=== PATIENT | female | born 1975 | race Caucasian/White ===

== ENCOUNTER 2016-09-19 17:44 | Emergency (ER) | payer OTHER ==
--- NOTE | ~2016-09-19 | CR63 ---
[facility]. [facility] A Service of [facility] RADIOLOGY TEXT RESULTS PATIENT: CHELSEA EASLEY LOCATION: SED : 77 UNIT #: [id number] AGE: [address]: GRACE GILLILAND SEX: F ORDER DR: [id number] [place] [id number] MR#: [id number] Acc #: [id number] NAME: CHELSEA EASLEY. : 1975 SEX: F STUDY DATE/TIME: 09/19/2016 18:12 UNIT: SED ROOM: STUDY DESCRIPTION: CR Chest 2 View Attending Physician: Grace Gilliland Aprn Ordering Physician: Grace Gilliland Aprn Primary Care Physician: No Primary Care Physician MEDICAL IMAGING REPORT This report is preliminary unless electronic signature is present. EXAM Two-view chest INDICATION Shortness of air. Nonproductive cough for the past 2 days. PROCEDURE Frontal and lateral views of the chest. COMPARISON 05/22/2014 FINDINGS Heart size within normal limits. Lungs clear. No pleural fluid. No pneumothorax. IMPRESSION No active process. Dictated by... Ray Peterson M.D. THIS IS AN ELECTRONICALLY VERIFIED REPORT Ray Peterson M.D. at 09/23/2016 7:05 AM AMY/papito TD: 09/20/2016 08:07 JOB #: [id number] MEDICAL IMAGING REPORT Page 1 of 1
[~2016-09-19 17:44] MED LIST: ALBUTEROL17 GM; ALBUTEROL17 GM INH; ALLEVE; AUGMENTIN PO; BACTRIM DS TABL1 TA1 PO; BENZONATATE PO; HYDROCODON-ACE1 EACH PO; LEVAQUIN750 M1 PO; LISINOPRIL PO; MUCINEX1200 MG/BO; NO MEDICATIONS; OCUFLOX10 ML OD; PREDNISONE PO; ROBITUSSIN A-C S5 ML PO; SYMBICORT INH; VICODIN PO; VOLTAREN75 MG PO; ZITHROMAX PO; ZYRTEC
[2016-09-19 18:14] LABS: BASOPHIL# 0.2 X10e3 (0-0.3); BASOPHIL% 1.4 % (0-2.5); EOSINOPHIL% 8.2 % (0.0-7.0); HEMATOCRIT 40.6 % (35.0-45.0); HEMOGLOBIN 13.5 gm/dL (12.0-16.0); LYMPHOCYTE# 3.1 X10e3 (1.0-3.5); LYMPHOCYTE% 25.5 % (17.0-45.0); MEAN CORPUSCULAR HEMOGLOBIN 29.2 PG (28-34); MEAN CORPUSCULAR HGB CONC 33.2 g/dL (30-36); MEAN PLATELET VOLUME 7.4 FL (6.5-11.5); MONOCYTE# 0.7 X10e3 (0-1.0); MONOCYTE% 5.9 % (3.0-12.0); NEUTROPHIL# 7.1 X10e3 (1.5-7.1); PLATELET COUNT 352 X10e3 (140-420); RED BLOOD COUNT 4.62 X10e (3.90-5.30); RED CELL DISTRIBUTION WIDTH 13.2 % (11.0-15.5); WHITE BLOOD COUNT 12.1 X10e3 (4.0-10.5)
[2016-09-19 18:15] LABS: DIFF IND NO
[2016-09-19 18:29] LABS: CALCIUM SERUM 8.9 mg/dL (8.4-10.2); GLOM FILT RATE Estimated 70.9 mL/min (>60); POTASSIUM 3.7 mmol/L (3.5-5.1)
== END 2016-09-19 21:04 | disposition home or self-care (01) ==
LOC: SED 17:44
PROVIDERS: Nurse Practitioner Family
DX: J45.901 Unspecified asthma with (acute) exacerbation (principal); J06.9 Acute upper respiratory infection, unspecified; F17.210 Nicotine dependence, cigarettes, uncomplicated; Z79.899 Other long term (current) drug therapy
CPT/HCPCS: 71020; 80048; 85025; 94640; 94644; 96365; 99284; J3475